=== PATIENT | male | born 1950 | race Caucasian/White ===

== ENCOUNTER 2016-08-22 11:53 | Emergency (ER) | payer SELFPAY ==
[~2016-08-22] VITALS: Ht 167.6 cm; Wt 79.4 kg
--- NOTE | 2016-08-22 12:53 | Emergency Room Report ---
History of Present Illness General Chief Complaint: Alcohol Intoxication Present Illness HPI 56-year-old male presents emergency department by ambulance for acute alcohol intoxication. Patient denies complaints or symptoms at this time he states that he wants to go home. Patient reports alcohol use earlier denies drug use. Denies CP, Palpitations, LOC, dizziness, Changes in Vision, Sensation, paresthesias, or a sudden severe headache. Allergies: Coded Allergies: No Known Allergies (Unverified , 08/22/16) Patient History Past Medical History: see triage record Past Surgical History: none Pertinent Family History: none Reviewed Nursing Documentation: PMH: Agreed, PSxH: Agreed Nursing Documentation-PMH Past Medical History Deferred: Pt Cognitively Impaired Review of Systems All Other Systems: negative except mentioned in HPI Physical Exam Vital Signs Date Time Temp Pulse Resp B/P Pulse Ox O2 Delivery O2 Flow Rate FiO2 08/22/16 11:50 98.4 77 18 151/86 98 Sp02 EP Interpretation: reviewed, normal General Appearance: no apparent distress, alert, GCS 15, non-toxic Head: normocephalic, atraumatic Eyes: bilateral eye PERRL, bilateral eye normal inspection ENT: hearing grossly normal, normal pharynx, no angioedema, normal voice Neck: full range of motion, supple/symm/no masses Respiratory: chest non-tender, lungs clear, normal breath sounds, speaking full sentences Cardiovascular #1: regular rate, rhythm, no edema Gastrointestinal: non tender, soft, no guarding, no rebound Musculoskeletal: back normal, gait/station normal, normal range of motion, non- tender Neurologic: alert, oriented x3, responsive, motor strength/tone normal, sensory intact, normal gait, speech normal - mildly slurred with obvious scent of alcohol on breath, no pronator Psychiatric: judgement/insight normal, memory normal, mood/affect normal, no suicidal/homicidal ideation Skin: normal color, no rash, warm/dry, well hydrated Medical Decision Making PA Attestation Dr. West is my supervising Physician whom patient management has been discussed with. Diagnostic Impression: Primary Impression: Acute alcoholic intoxication Qualified Codes: F10.120 - Alcohol abuse with intoxication, uncomplicated ER Course 56-year-old male presents emergency department by ambulance for acute alcohol intoxication. Patient denies complaints or symptoms at this time he states that he wants to go home. Patient reports alcohol use earlier denies drug use. pt. is NAD, pt. is alert, no obvious signs of trauma, able to ambulate to chair. Ddx considered but are not limited to ETOH, Trauma, Syncope, dementia, OD Vital signs: are WNL, pt. is afebrile H&PE are most consistent with ETOH abuse. ORDERS: none required at this time, Pt. is requesting to leave. ED INTERVENTIONS: Observance , Pt. requests to leave during initial PE, DISCHARGE: At this time pt. is stable for d/c to home. Will provide printed patient care instructions, and any necessary prescriptions. Care plan and follow up instructions have been discussed with the patient prior to discharge. Last Vital Signs Date Time Temp Pulse Resp B/P Pulse Ox O2 Delivery O2 Flow Rate FiO2 08/22/16 11:50 98.4 77 18 151/86 98 Disposition: HOME, SELF-CARE Condition: Stable Patient Instructions: Alcohol Abuse and Nutrition Additional Instructions: Take medications as directed. Follow up with PCP in 3-5 days Return sooner to ED if new symptoms occur, or current symptoms become worse. - Please note that this Emergency Department Report was dictated using [employer] technology software, occasionally this can lead to erroneous entry secondary to interpretation by the dictation equipment. Maricarmen Palafox Aug 22, 2016 12:53
[2016-08-22 13:12] VITALS: BP 144/78
== END 2016-08-22 13:14 | disposition home or self-care (01) ==
LOC: EDBD 11:53 → EMR 13:01
DX: F10.129 Alcohol abuse with intoxication, unspecified (principal)
CPT/HCPCS: 99284